=== PATIENT | female | born 1985 | race Caucasian/White ===

== ENCOUNTER 2022-11-30 08:23 | Emergency (ER) | payer OTHER ==
[~2022-11-30] VITALS: Ht 167.6 cm; Wt 50.0 kg
[2022-11-30 08:42] VITALS: TEMP 98.6
[2022-11-30] MEDS ORDERED: ACETAMINOPHEN 325 MG TABLET PO ONE (08:45)
[2022-11-30 09:45] VITALS: BP 119/82; PULSE 98; RESP 18
== END 2022-11-30 10:15 ==
LOC: EMS 08:28
DX: S09.90XA Unspecified injury of head, initial encounter (principal); W19.XXXA Unspecified fall, initial encounter; Y93.89 Activity, other specified; Y92.89 Other specified places as the place of occurrence of the external cause; Y99.8 Other external cause status
CPT/HCPCS: 70450; 72125; 99284